=== PATIENT | female | born 1935 | race Caucasian/White ===

== ENCOUNTER → 2017-08-30 12:12 | Outpatient (CLI) | payer MEDICARE, SELFPAY ==
--- NOTE | 2017-08-30 12:17 | XR_ITS ---
EXAM: XR lumbar spine min 4V HISTORY: ITS.REASON: LBP WITHOUT SCIATICA ORDERING PHYSICIAN: Hina Mcbride PATIENT AGE: 82 years FINDINGS: Normal alignment. No fracture or dislocation. No lytic or blastic change. There are minimal hypertrophic changes involving the endplates at L1, L2, and L3. Mild degenerative disc disease L1-L4. IMPRESSION: 1. No acute finding. 2. Mild lumbar spondylosis as described above
== END ==
PROVIDERS: PCP Internal Medicine Adolescent Medicine; Visit Provider Nurse Practitioner Family
DX: M54.5 Low back pain (principal)
CPT/HCPCS: 72110

== ENCOUNTER → 2018-04-08 12:59 | Outpatient (CLI) | payer MEDICARE, SELFPAY ==
[2018-04-08 13:56] LABS: Basophils % 0.4 % (0.1-2.0); Eosinophils % 0.6 % (0.1-12.0); Hematocrit 37.5 % (37.0-47.0); Hemoglobin 12.1 g/dL (12.2-16.2); Lymphocytes % 14.7 % (10-50); Mean Corpuscular HGB Conc 32.1 g/dL (31.8-35.4); Mean Corpuscular Hemoglobin 31.5 pg (27.0-31.2); Mean Corpuscular Volume 98.1 fl (81-99); Mean Platelet Volume 8.1 fl (7.4-10.4); Monocytes # 0.3 K/mm3 (0.1-1.0); Monocytes % 4.5 % (1.7-9.3); Neutrophils # 5.7 K/mm3 (1.8-7.8); Neutrophils % 79.8 % (37.0-80.0); Platelet Count 244 K/mm3 (142-424); Red Blood Count 3.83 M/mm3 (4.20-5.40); Red Cell Distribution Width 12.7 % (11.5-17.5); White Blood Count 7.1 K/mm3 (4.8-10.8)
[2018-04-08 14:16] LABS: INR 1.24 (0.9-1.1); Prothrombin Time 12.7 seconds (9.4-11.8)
[2018-04-08 14:21] LABS: Anion Gap 11.8 mEq/L (5-15); Blood Urea Nitrogen 11 mg/dL (7-18); Calcium 8.3 mg/dL (8.5-10.1); Carbon Dioxide 28 mmol/L (21.0-32.0); Chloride 106 mmol/L (98-107); Creatinine,Serum 1.08 mg/dL (0.55-1.02); Estimated Glomerular Filt Rate 48 ml/min (>60); GFR (African American) 59 ML/MIN (>60); Glucose 129 mg/dL (74-106); Magnesium 1.2 mg/dL (1.4-2.2); Phenytoin (Dilantin) 12.7 ug/mL (10-20); Potassium 3.8 mmoL/L (3.5-5.1); Sodium 142 mmol/L (136-145)
== END ==
PROVIDERS: Visit Provider Nurse Practitioner Family
DX: I48.0 Paroxysmal atrial fibrillation (principal)
CPT/HCPCS: 36415; 80048; 80185; 83735; 85025; 85610

== ENCOUNTER 2018-04-12 13:06 | Outpatient (CLI) | payer MEDICARE, SELFPAY ==
[2018-04-12 14:10] LABS: PHA INR Fingerstick 2.2 (0.9-1.1)
== END 2018-04-12 14:12 | disposition home or self-care (01) ==
LOC: ACC 13:09
PROVIDERS: PCP Internal Medicine Adolescent Medicine; Visit Provider Nurse Practitioner Family
DX: Z51.81 Encounter for therapeutic drug level monitoring (principal); Z79.01 Long term (current) use of anticoagulants; I48.91 Unspecified atrial fibrillation
CPT/HCPCS: 85610; 99211; G0463

== ENCOUNTER 2018-04-19 08:14 | Outpatient (CLI) | payer MEDICARE, SELFPAY | END 2018-04-19 15:27 | disposition home or self-care (01) | LOC: ACC 08:16 | PROVIDERS: PCP Internal Medicine Adolescent Medicine; Visit Provider Internal Medicine Adolescent Medicine | DX: Z79.01 Long term (current) use of anticoagulants (principal); Z51.81 Encounter for therapeutic drug level monitoring; I48.91 Unspecified atrial fibrillation | CPT/HCPCS: 99211; G0463 ==

== ENCOUNTER 2018-04-29 10:02 | Outpatient (CLI) | payer MEDICARE, SELFPAY ==
[2018-04-29 14:48] LABS: PHA INR Fingerstick 1.7 (0.9-1.1)
== END 2018-04-29 15:02 | disposition home or self-care (01) ==
LOC: ACC 10:05
PROVIDERS: PCP Internal Medicine Adolescent Medicine; Visit Provider Internal Medicine Adolescent Medicine
DX: Z51.81 Encounter for therapeutic drug level monitoring (principal); Z79.01 Long term (current) use of anticoagulants; I48.91 Unspecified atrial fibrillation
CPT/HCPCS: 85610; 99211; G0463

== ENCOUNTER 2018-05-13 09:45 | Outpatient (CLI) | payer MEDICARE, SELFPAY ==
[2018-05-13 11:19] LABS: PHA INR Fingerstick 2.9 (0.9-1.1)
== END 2018-05-13 11:51 | disposition home or self-care (01) ==
LOC: ACC 09:47
PROVIDERS: PCP Nurse Practitioner Family; Visit Provider Nurse Practitioner Family
DX: Z51.81 Encounter for therapeutic drug level monitoring (principal); Z79.01 Long term (current) use of anticoagulants; I48.91 Unspecified atrial fibrillation
CPT/HCPCS: 85610; 99211; G0463

== ENCOUNTER 2018-05-24 09:30 | Outpatient (CLI) | payer MEDICARE, SELFPAY ==
[2018-05-24 15:53] LABS: PHA INR Fingerstick 2.3 (0.9-1.1)
== END 2018-05-24 16:10 | disposition home or self-care (01) ==
LOC: ACC 09:31
PROVIDERS: PCP Internal Medicine Adolescent Medicine; Visit Provider Nurse Practitioner Family
DX: Z51.81 Encounter for therapeutic drug level monitoring (principal); Z79.01 Long term (current) use of anticoagulants; I48.91 Unspecified atrial fibrillation
CPT/HCPCS: 85610; 99211; G0463

== ENCOUNTER 2018-06-14 10:22 | Outpatient (CLI) | payer MEDICARE, SELFPAY ==
[2018-06-14 16:02] LABS: PHA INR Fingerstick 2.4 (0.9-1.1)
== END 2018-06-14 16:10 | disposition home or self-care (01) ==
LOC: ACC 10:25
PROVIDERS: PCP Internal Medicine Adolescent Medicine; Visit Provider Nurse Practitioner Family
DX: Z51.81 Encounter for therapeutic drug level monitoring (principal); Z79.01 Long term (current) use of anticoagulants; I48.91 Unspecified atrial fibrillation
CPT/HCPCS: 85610; 99211; G0463

== ENCOUNTER 2018-07-12 10:16 | Outpatient (CLI) | payer MEDICARE, SELFPAY ==
[2018-07-12 13:38] LABS: PHA INR Fingerstick 2.6 (0.9-1.1)
== END 2018-07-12 14:16 | disposition home or self-care (01) ==
LOC: ACC 10:18
PROVIDERS: PCP Internal Medicine Adolescent Medicine; Visit Provider Nurse Practitioner Family
DX: Z51.81 Encounter for therapeutic drug level monitoring (principal); Z79.01 Long term (current) use of anticoagulants; I48.91 Unspecified atrial fibrillation
CPT/HCPCS: 85610; 99211; G0463

== ENCOUNTER 2018-08-06 11:20 | Outpatient (CLI) | payer MEDICARE, SELFPAY ==
[2018-08-06 13:20] LABS: PHA INR Fingerstick 2.1 (0.9-1.1)
== END 2018-08-06 13:41 | disposition home or self-care (01) ==
LOC: ACC 11:21
PROVIDERS: PCP Nurse Practitioner Family; Visit Provider Nurse Practitioner Family
DX: Z51.81 Encounter for therapeutic drug level monitoring (principal); Z79.01 Long term (current) use of anticoagulants; I48.91 Unspecified atrial fibrillation
CPT/HCPCS: 85610; 99211; G0463

== ENCOUNTER 2018-09-20 10:21 | Outpatient (CLI) | payer MEDICARE, SELFPAY ==
[2018-09-20 14:57] LABS: PHA INR Fingerstick 2.4 (0.9-1.1)
== END 2018-09-20 14:59 | disposition home or self-care (01) ==
LOC: ACC 10:22
PROVIDERS: PCP Nurse Practitioner Family; Visit Provider Nurse Practitioner Family
DX: Z51.81 Encounter for therapeutic drug level monitoring (principal); Z79.01 Long term (current) use of anticoagulants; I48.91 Unspecified atrial fibrillation; I10 Essential (primary) hypertension; R56.9 Unspecified convulsions; Z86.73 Personal history of transient ischemic attack (TIA), and cerebral infarction without residual deficits
CPT/HCPCS: 85610; 99211; G0463

== ENCOUNTER 2018-11-01 09:48 | Outpatient (CLI) | payer MEDICARE, SELFPAY ==
[2018-11-01 15:17] LABS: PHA INR Fingerstick 2.8 (0.9-1.1)
== END 2018-11-01 15:24 | disposition home or self-care (01) ==
LOC: ACC 09:49
PROVIDERS: PCP Internal Medicine Adolescent Medicine; Visit Provider Nurse Practitioner Family
DX: Z51.81 Encounter for therapeutic drug level monitoring (principal); Z79.01 Long term (current) use of anticoagulants; I48.91 Unspecified atrial fibrillation
CPT/HCPCS: 85610; 99211; G0463

== ENCOUNTER 2018-12-13 09:46 | Outpatient (CLI) | payer MEDICARE, SELFPAY ==
[2018-12-13 10:30] LABS: PHA INR Fingerstick 2.6 (0.9-1.1)
== END 2018-12-13 10:34 | disposition home or self-care (01) ==
LOC: ACC 09:48
PROVIDERS: PCP Nurse Practitioner Family; Visit Provider Nurse Practitioner Family
DX: Z51.81 Encounter for therapeutic drug level monitoring (principal); Z79.01 Long term (current) use of anticoagulants; I48.91 Unspecified atrial fibrillation
CPT/HCPCS: 85610; 99211; G0463

== ENCOUNTER 2019-01-24 09:29 | Outpatient (CLI) | payer MEDICARE, SELFPAY ==
[2019-01-24 12:22] LABS: PHA INR Fingerstick 2.7 (0.9-1.1)
== END 2019-01-24 12:24 | disposition home or self-care (01) ==
LOC: ACC 09:30
PROVIDERS: PCP Nurse Practitioner Family; Visit Provider Nurse Practitioner Family
DX: Z51.81 Encounter for therapeutic drug level monitoring (principal); Z79.01 Long term (current) use of anticoagulants; I48.91 Unspecified atrial fibrillation
CPT/HCPCS: 85610; 99211; G0463

== ENCOUNTER 2019-03-07 09:38 | Outpatient (CLI) | payer MEDICARE, SELFPAY ==
[2019-03-07 10:22] LABS: PHA INR Fingerstick 2.7 (0.9-1.1)
== END 2019-03-07 10:24 | disposition home or self-care (01) ==
LOC: ACC 09:40
PROVIDERS: PCP Internal Medicine Adolescent Medicine; Visit Provider Nurse Practitioner Family
DX: Z51.81 Encounter for therapeutic drug level monitoring (principal); Z79.01 Long term (current) use of anticoagulants
CPT/HCPCS: 85610; 99211; G0463

== ENCOUNTER 2019-04-18 09:53 | Outpatient (CLI) | payer MEDICARE, SELFPAY | END 2019-04-18 15:03 | disposition home or self-care (01) | LOC: ACC 09:54 | PROVIDERS: PCP Nurse Practitioner Family; Visit Provider Nurse Practitioner Family | DX: Z51.81 Encounter for therapeutic drug level monitoring (principal); Z79.01 Long term (current) use of anticoagulants; I48.91 Unspecified atrial fibrillation | CPT/HCPCS: 85610; 99211; G0463 ==

== ENCOUNTER 2019-05-23 09:39 | Outpatient (CLI) | payer MEDICARE, SELFPAY ==
[2019-05-23 13:34] LABS: PHA INR Fingerstick 2.2 (0.9-1.1)
== END 2019-05-23 13:36 | disposition home or self-care (01) ==
LOC: ACC 09:40
PROVIDERS: PCP Internal Medicine Adolescent Medicine; Visit Provider Internal Medicine Adolescent Medicine
DX: Z51.81 Encounter for therapeutic drug level monitoring (principal); Z79.01 Long term (current) use of anticoagulants; I48.91 Unspecified atrial fibrillation
CPT/HCPCS: 85610; 99211; G0463

== ENCOUNTER 2019-07-04 09:20 | Outpatient (CLI) | payer MEDICARE, SELFPAY ==
[2019-07-04 10:15] LABS: PHA INR Fingerstick 3.1 (0.9-1.1)
== END 2019-07-04 10:16 | disposition home or self-care (01) ==
LOC: ACC 09:22
PROVIDERS: PCP Internal Medicine Adolescent Medicine; Visit Provider Internal Medicine Adolescent Medicine
DX: Z51.81 Encounter for therapeutic drug level monitoring (principal); Z79.01 Long term (current) use of anticoagulants; I48.91 Unspecified atrial fibrillation
CPT/HCPCS: 85610; 99211; G0463

== ENCOUNTER → 2019-07-07 11:15 | Outpatient (CLI) | payer MEDICARE, SELFPAY ==
--- NOTE | 2019-07-07 11:19 | XR_ITS ---
PROCEDURE: XR ANKLE RT MIN 3V CLINICAL INDICATION: RT ANKLE AND JOINT PAIN Medial ankle pain COMPARISON: No exams were available for comparison FINDINGS: No fracture, dislocation, lytic change, or blastic change evident. No significant degenerative change. There is generalized vascular calcification. IMPRESSION: No acute findings. Dictated by: Xavi Webb MD 07/07/2019 11:48 Electronically signed by Xavi Webb MD in [place] 07/07/2019 11:48
== END ==
PROVIDERS: PCP Nurse Practitioner Family; Visit Provider Nurse Practitioner Family
DX: M25.571 Pain in right ankle and joints of right foot (principal); G89.29 Other chronic pain
CPT/HCPCS: 73610

== ENCOUNTER 2019-08-01 09:43 | Outpatient (CLI) | payer MEDICARE, SELFPAY | END 2019-08-01 11:02 | disposition home or self-care (01) | PROVIDERS: PCP Nurse Practitioner Family; Visit Provider Internal Medicine Adolescent Medicine | DX: Z51.81 Encounter for therapeutic drug level monitoring (principal); Z79.01 Long term (current) use of anticoagulants; I48.91 Unspecified atrial fibrillation | CPT/HCPCS: 85610; 99211; G0463 ==

== ENCOUNTER 2019-08-29 10:09 | Outpatient (CLI) | payer MEDICARE, SELFPAY ==
[2019-08-29 11:13] LABS: PHA INR Fingerstick 2.1 (0.9-1.1)
== END 2019-08-29 11:18 | disposition home or self-care (01) ==
LOC: ACC 10:11
PROVIDERS: PCP Internal Medicine Adolescent Medicine; Visit Provider Internal Medicine Adolescent Medicine
DX: Z51.81 Encounter for therapeutic drug level monitoring (principal); Z79.01 Long term (current) use of anticoagulants; I48.91 Unspecified atrial fibrillation
CPT/HCPCS: 85610; 99211; G0463

== ENCOUNTER 2019-10-03 09:20 | Outpatient (CLI) | payer MEDICARE, SELFPAY ==
[2019-10-03 10:26] LABS: PHA INR Fingerstick 2.4 (0.9-1.1)
== END 2019-10-03 10:28 | disposition home or self-care (01) ==
LOC: ACC 09:20
PROVIDERS: PCP Internal Medicine Adolescent Medicine; Visit Provider Internal Medicine Adolescent Medicine
DX: Z51.81 Encounter for therapeutic drug level monitoring (principal); Z79.01 Long term (current) use of anticoagulants; I48.91 Unspecified atrial fibrillation
CPT/HCPCS: 85610; 99211; G0463

== ENCOUNTER 2019-11-14 09:36 | Outpatient (CLI) | payer MEDICARE, SELFPAY ==
[2019-11-14 15:41] LABS: PHA INR Fingerstick 1.4 (0.9-1.1)
== END 2019-11-14 15:54 | disposition home or self-care (01) ==
LOC: ACC 09:37
PROVIDERS: PCP Internal Medicine Adolescent Medicine; Visit Provider Internal Medicine Adolescent Medicine
DX: Z51.81 Encounter for therapeutic drug level monitoring (principal); Z79.01 Long term (current) use of anticoagulants; I48.91 Unspecified atrial fibrillation
CPT/HCPCS: 85610; 99211; G0463

== ENCOUNTER 2019-12-12 09:34 | Outpatient (CLI) | payer MEDICARE, SELFPAY ==
[2019-12-12 13:47] LABS: PHA INR Fingerstick 1.7 (0.9-1.1)
== END 2019-12-12 13:49 | disposition home or self-care (01) ==
LOC: ACC 09:35
PROVIDERS: PCP Internal Medicine Adolescent Medicine; Visit Provider Internal Medicine Adolescent Medicine
DX: Z51.81 Encounter for therapeutic drug level monitoring (principal); Z79.01 Long term (current) use of anticoagulants; I48.91 Unspecified atrial fibrillation
CPT/HCPCS: 85610; 99211; G0463

== ENCOUNTER 2020-01-09 09:28 | Outpatient (CLI) | payer MEDICARE, SELFPAY ==
[2020-01-09 15:10] LABS: PHA INR Fingerstick 2.7 (0.9-1.1)
== END 2020-01-09 15:19 | disposition home or self-care (01) ==
LOC: ACC 09:29
PROVIDERS: PCP Internal Medicine Adolescent Medicine; Visit Provider Internal Medicine Adolescent Medicine
DX: Z51.81 Encounter for therapeutic drug level monitoring (principal); Z79.01 Long term (current) use of anticoagulants; I48.91 Unspecified atrial fibrillation
CPT/HCPCS: 85610; 99211; G0463

== ENCOUNTER 2020-01-23 09:39 | Outpatient (CLI) | payer MEDICARE, SELFPAY ==
[2020-01-23 13:59] LABS: PHA INR Fingerstick 2.9 (0.9-1.1)
== END 2020-01-23 14:06 | disposition home or self-care (01) ==
LOC: ACC 09:40
PROVIDERS: PCP Internal Medicine Adolescent Medicine; Visit Provider Internal Medicine Adolescent Medicine
DX: Z51.81 Encounter for therapeutic drug level monitoring (principal); Z79.01 Long term (current) use of anticoagulants; I48.91 Unspecified atrial fibrillation
CPT/HCPCS: 85610; 99211; G0463

== ENCOUNTER 2020-02-27 09:38 | Outpatient (CLI) | payer MEDICARE, SELFPAY ==
[2020-02-27 14:46] LABS: PHA INR Fingerstick 2.9 (0.9-1.1)
== END 2020-02-27 15:02 | disposition home or self-care (01) ==
LOC: ACC 09:39
PROVIDERS: PCP Internal Medicine Adolescent Medicine; Visit Provider Internal Medicine Adolescent Medicine
DX: Z51.81 Encounter for therapeutic drug level monitoring (principal); Z79.01 Long term (current) use of anticoagulants
CPT/HCPCS: 85610; 99211; G0463

== ENCOUNTER 2020-03-26 09:57 | Outpatient (CLI) | payer MEDICARE, SELFPAY ==
[2020-03-26 14:02] LABS: PHA INR Fingerstick 3.2 (0.9-1.1)
== END 2020-03-26 14:04 | disposition home or self-care (01) ==
LOC: ACC 09:58
PROVIDERS: PCP Internal Medicine Adolescent Medicine; Visit Provider Internal Medicine Adolescent Medicine
DX: Z51.81 Encounter for therapeutic drug level monitoring (principal); Z79.01 Long term (current) use of anticoagulants
CPT/HCPCS: 85610; 99211; G0463

== ENCOUNTER 2020-04-19 09:11 | Outpatient (CLI) | payer MEDICARE, SELFPAY ==
[2020-04-19 14:29] LABS: PHA INR Fingerstick 3.2 (0.9-1.1)
== END 2020-04-19 13:48 | disposition home or self-care (01) ==
LOC: ACC 09:12
PROVIDERS: PCP Internal Medicine Adolescent Medicine; Visit Provider Internal Medicine Adolescent Medicine
DX: Z51.81 Encounter for therapeutic drug level monitoring (principal); Z79.01 Long term (current) use of anticoagulants; I48.91 Unspecified atrial fibrillation
CPT/HCPCS: 85610; 99211; G0463

== ENCOUNTER 2020-05-31 09:40 | Outpatient (CLI) | payer MEDICARE, SELFPAY ==
[2020-05-31 12:23] LABS: PHA INR Fingerstick 2.2 (0.9-1.1)
== END 2020-05-31 14:43 | disposition home or self-care (01) ==
LOC: ACC 09:41
PROVIDERS: PCP Nurse Practitioner Family; Visit Provider Internal Medicine Adolescent Medicine
DX: Z51.81 Encounter for therapeutic drug level monitoring (principal); Z79.01 Long term (current) use of anticoagulants; I48.91 Unspecified atrial fibrillation
CPT/HCPCS: 85610; 99211; G0463

== ENCOUNTER 2020-07-16 10:03 | Outpatient (CLI) | payer MEDICARE, SELFPAY ==
[2020-07-16 11:26] LABS: PHA INR Fingerstick 2.2 (0.9-1.1)
== END 2020-07-16 11:31 | disposition home or self-care (01) ==
LOC: ACC 10:05
PROVIDERS: PCP Internal Medicine Adolescent Medicine; Visit Provider Internal Medicine Adolescent Medicine
DX: Z51.81 Encounter for therapeutic drug level monitoring (principal); Z79.01 Long term (current) use of anticoagulants; I48.91 Unspecified atrial fibrillation
CPT/HCPCS: 85610; 99211; G0463

== ENCOUNTER 2020-08-27 09:50 | Outpatient (CLI) | payer MEDICARE, SELFPAY ==
[2020-08-27 10:24] LABS: PHA INR Fingerstick 1.6 (0.9-1.1)
== END 2020-08-27 10:25 | disposition home or self-care (01) ==
LOC: ACC 09:51
PROVIDERS: PCP Internal Medicine Adolescent Medicine; Visit Provider Internal Medicine Adolescent Medicine
DX: Z51.81 Encounter for therapeutic drug level monitoring (principal); Z79.01 Long term (current) use of anticoagulants
CPT/HCPCS: 85610; 99211; G0463

== ENCOUNTER 2020-09-10 10:24 | Outpatient (CLI) | payer MEDICARE, SELFPAY ==
[2020-09-10 10:57] LABS: PHA INR Fingerstick 1.7 (0.9-1.1)
== END 2020-09-10 10:59 | disposition home or self-care (01) ==
LOC: ACC 10:25
PROVIDERS: PCP Internal Medicine Adolescent Medicine; Visit Provider Internal Medicine Adolescent Medicine
DX: Z51.81 Encounter for therapeutic drug level monitoring (principal); Z79.01 Long term (current) use of anticoagulants; I48.91 Unspecified atrial fibrillation
CPT/HCPCS: 85610; 99211; G0463

== ENCOUNTER 2020-10-08 09:47 | Outpatient (CLI) | payer MEDICARE, SELFPAY ==
[2020-10-08 13:55] LABS: PHA INR Fingerstick 2.5 (0.9-1.1)
== END 2020-10-08 13:56 | disposition home or self-care (01) ==
LOC: ACC 09:49
PROVIDERS: PCP Nurse Practitioner Family; Visit Provider Internal Medicine Adolescent Medicine
DX: Z79.01 Long term (current) use of anticoagulants (principal)
CPT/HCPCS: 85610; 99211; G0463

== ENCOUNTER 2020-11-19 09:24 | Outpatient (CLI) | payer MEDICARE, SELFPAY ==
--- NOTE | 2020-11-19 15:35 | XR_ITS ---
PROCEDURE: XR FOREARM LT 2V Left wrist three views CLINICAL INDICATION: LT FOREARM PAIN Posttraumatic pain COMPARISON: CR XR WRIST LT MIN 3V from 11/19/2020 FINDINGS: There is a nondisplaced transverse fracture involving the distal aspect radius best visualized on the lateral view. The proximal mid aspect of the radius and ulna have an unremarkable appearance. There is an old fracture versus ununited ossification center at the ulnar styloid process with chondrocalcinosis of the triangular fibrocartilage. Mild osteoarthritic changes are present at the 1st metacarpal-carpal joint. IMPRESSION: Nondisplaced transverse distal radial fracture Dictated by: Xavi Webb MD 11/19/2020 15:54 Xavi Webb MD in [place] 11/19/2020 15:54
[2020-11-19 17:59] LABS: PHA INR Fingerstick 1.9 (0.9-1.1)
== END 2020-11-19 18:07 | disposition home or self-care (01) ==
PROVIDERS: PCP Internal Medicine Adolescent Medicine; Visit Provider Internal Medicine Adolescent Medicine
DX: M79.632 Pain in left forearm (principal); Z51.81 Encounter for therapeutic drug level monitoring; Z79.01 Long term (current) use of anticoagulants; I48.91 Unspecified atrial fibrillation
CPT/HCPCS: 73090; 73110; 85610; 99211; G0463

== ENCOUNTER 2020-11-19 16:27 | Outpatient (RCR) | payer MEDICARE, SELFPAY | END 2020-11-19 17:41 | disposition home or self-care (01) | LOC: PT 16:27 | PROVIDERS: Visit Provider Internal Medicine Adolescent Medicine | DX: S52.325A Nondisplaced transverse fracture of shaft of left radius, initial encounter for closed fracture (principal) | CPT/HCPCS: 97760 ==

== ENCOUNTER → 2020-11-26 10:02 | Outpatient (CLI) | payer MEDICARE, SELFPAY ==
--- NOTE | 2020-11-26 10:07 | XR_ITS ---
PROCEDURE: XR WRIST LT MIN 3V CLINICAL INDICATION: left wirst fracture COMPARISON: CR XR WRIST LT MIN 3V from 11/19/2020 FINDINGS: Studies obtained through a cast. There is good alignment the distal radial fracture with minimal dorsal angulation and minimal dorsal displacement of the distal fracture fragment. IMPRESSION: Good alignment status post closed reduction Dictated by: Xavi Webb MD 11/26/2020 11:39 Xavi Webb MD in [place] 11/26/2020 11:39
== END ==
PROVIDERS: PCP Internal Medicine Adolescent Medicine; Visit Provider Orthopaedic Surgery
DX: S62.102A Fracture of unspecified carpal bone, left wrist, initial encounter for closed fracture (principal)
CPT/HCPCS: 73110

== ENCOUNTER 2020-12-17 10:12 | Outpatient (CLI) | payer MEDICARE, SELFPAY ==
[2020-12-17 13:53] LABS: PHA INR Fingerstick 1.9 (0.9-1.1)
== END 2020-12-17 13:57 | disposition home or self-care (01) ==
LOC: ACC 10:12
PROVIDERS: PCP Internal Medicine Adolescent Medicine; Visit Provider Internal Medicine Adolescent Medicine
DX: Z51.81 Encounter for therapeutic drug level monitoring (principal); Z79.01 Long term (current) use of anticoagulants; I48.91 Unspecified atrial fibrillation
CPT/HCPCS: 85610; 99211; G0463

== ENCOUNTER → 2020-12-24 09:32 | Outpatient (CLI) | payer MEDICARE, SELFPAY ==
--- NOTE | 2020-12-24 09:36 | XR_ITS ---
PROCEDURE: XR WRIST LT MIN 3V CLINICAL INDICATION: left wrist fracture Essentially healed distal radial fracture COMPARISON: CR XR WRIST LT MIN 3V from 11/19/2020 CR XR WRIST LT MIN 3V from 11/26/2020 FINDINGS: There is generalized osteopenia. Nondisplaced distal radial fracture is essentially healed with with a transverse linear sclerotic area at the healing fracture site. An old unfused ulnar apophysis or on views ulnar styloid fracture is again seen. IMPRESSION: Essentially healed distal radial fracture Dictated by: Dr. King Greer MD 12/24/2020 09:58 Dr. King Greer MD in [place] 12/24/2020 09:58
== END ==
PROVIDERS: PCP Internal Medicine Adolescent Medicine; Visit Provider Orthopaedic Surgery
DX: S52.502A Unspecified fracture of the lower end of left radius, initial encounter for closed fracture (principal)
CPT/HCPCS: 73110

== ENCOUNTER 2021-01-05 18:12 | Emergency (ER) | payer MEDICARE, SELFPAY ==
[2021-01-05 18:27] VITALS: BP 132/77; PULSE 94; RESP 20; TEMP 36.6; O2SAT 96; BMI 20.7
--- NOTE | 2021-01-05 18:36 | XR_ITS ---
PROCEDURE INFORMATION: Exam: XR Chest Exam date and time: 01/05/2021 6:36 PM Age: 85 years old Clinical indication: Cough; Prior surgery; Surgery date: 6+ months; Surgery type: Loop recorder TECHNIQUE: Imaging protocol: XR of the chest. Views: 2 views. COMPARISON: CR CXR CHEST(2 VIEWS-NOT PORTABLE) 04/20/2016 11:13 AM FINDINGS: Tubes, catheters and devices: Cardiac monitoring device overlies the left lung base. Lungs: No consolidations, or pleural effusions. Pleural spaces: See Lungs finding. Heart/Mediastinum: Unremarkable. No cardiomegaly. Bones/joints: Unremarkable. IMPRESSION: No acute findings.
[2021-01-05 18:43] LABS: Basophils % 0.4 % (0.1-2.0); Eosinophils % 0.1 % (0.1-12.0); Hematocrit 37.1 % (37.0-47.0); Hemoglobin 12.7 g/dL (12.2-16.2); Lymphocytes # 0.8 K/mm3 (0.7-4.5); Lymphocytes % 13.5 % (10-50); Mean Corpuscular HGB Conc 34.2 g/dL (31.8-35.4); Mean Corpuscular Hemoglobin 33.2 pg (27.0-31.2); Mean Corpuscular Volume 96.9 fl (81-99); Mean Platelet Volume 8.5 fl (7.4-10.4); Monocytes # 0.3 K/mm3 (0.1-1.0); Monocytes % 5.3 % (1.7-9.3); Neutrophils # 4.6 K/mm3 (1.8-7.8); Neutrophils % 80.8 % (37.0-80.0); Platelet Count 223 K/mm3 (142-424); Red Blood Count 3.83 M/mm3 (4.20-5.40); Red Cell Distribution Width 12.6 % (11.5-17.5); White Blood Count 5.7 K/mm3 (4.8-10.8)
[2021-01-05 18:45] LABS: Chloride 98 mmol/L (98-107); Potassium 3.2 mmoL/L (3.5-5.1); Sodium 136 mmol/L (136-145)
--- NOTE | 2021-01-05 18:45 | HMH.EDUTC ---
[facility] Disposition Clinical Impression: Dehydration, COVID-19 Sinusitis Qualifiers: Sinusitis location: unspecified location Chronicity: unspecified Qualified Code(s): J32.9 - Chronic sinusitis, unspecified Disposition: Home, Self-Care Condition on Discharge: Good Instructions: Dehydration, DI for Hypokalemia, DI for COVID-19 (Suspected or Confirmed ), Preventing the Spread of Coronavirus Discharge Instructions Additional Instructions: *Monitor Temp, Over the counter Motrin or Tylenol as directed/as needed Tylenol every 4 hours and Motrin every 6 hours (as long as your family doctor has told you that you can take it) for fever or pain. and straight to ER if unable to lower temp less than 101.0 after medication given *Warm salt water gargles may help to soothe the throat *Throat Lozenges *Warm fluids like tea with honey may help to soothe the throat *Sleep elevated *Humidifier/Vaporizer You was given a handout with instructions for Self Quarantine and Self isolation for while you wait on test results and what to do if they are positive If you are positive the Health Dept will be contacting you also Make sure to take your Vitamins Vit. C Vit D and Zinc if you can take them Follow up IMMEDIATELY for new or worsening symptoms or no Noticeable improvement over the next 48-72 hours. 911 for difficulty breathing or swallowing Contact your Family Doctor if no improvement and follow up as needed Go straight to the ER if you have an trouble breathing, chest pain or worsening of symptoms Make sure to eat some potatoes, bananas etc to help get your potassium raised Return if needed Make sure to contact the [facility] to let them know you are taking Azithromycin and Medrol dose pack so they can adjust your medication Make sure to drink plenty of fluids like water and or gatoraid to help prevent dehydration however gatoraid does contain alot of sodium so watch it if you follow a low sodium diet Prescriptions: methylPREDNISolone [Medrol 4mg tab] 4 mg PO DIRECTED #21 tab Transmission Status: Pending to Frequency # Azithromycin [Z-Lalit 250mg Tab] 250 mg PO DIRECTED #6 tab Transmission Status: Pending to Frequency # Referrals: Hina Mcbride APRN [Primary Care Provider] - As needed Time of Disposition: 20:53 Medical Decision Making - Emerson Inquiry Pt receiving controlled substance: No Emerson was queried for this patient: No Vital Signs: 01/05/21 18:27 Temperature 97.9 F Temperature Source Temporal Artery Scan Pulse Rate [Left] 94 H Respiratory Rate 20 Blood Pressure [Right Arm] 132/77 Blood Pressure Mean [Right Arm] 95 02 Sat by Pulse Oximetry 96 - Lab Data Lab Results 01/05/21 18:20: WBC 5.7, RBC 3.83 L, Hgb 12.7, Hct 37.1, MCV 96.9, MCH 33.2 H, MCHC 34.2, RDW 12.6, Plt Count 223, MPV 8.5, Neut % (Auto) 80.8 H, Lymph % (Auto) 13.5, [place] % (Auto) 5.3, Eos % (Auto) 0.1, Baso % (Auto) 0.4, Neut # (Auto) 4.6, Lymph # (Auto) 0.8, [place] # (Auto) 0.3, Eos # (Auto) 0.0, Baso # (Auto) 0.0 01/05/21 18:20: Sodium 136, Potassium 3.2 L, Chloride 98, Carbon Dioxide 25, Anion Gap 16.2 H, BUN 30 H, Creatinine 1.40 H, Estimated Creat Clear 26, Estimated GFR 36 L, Est GFR ( Amer) 43 L, Glucose 124 H, Calcium 7.9 L, Total Bilirubin 0.3, AST 26, ALT 19, Alkaline Phosphatase 202 H, Total Protein 7.2, Albumin 3.8, Globulin 3.4 H, Albumin/Globulin Ratio 1.1 01/05/21 18:30: SARS-CoV-2 (PCR) Detected A, Influenza A Untype (PCR) Not detected, Influenza Type B (PCR) Not detected Result diagrams: 01/05/21 18:20 01/05/21 18:20 Orders (Tests/Meds): ED MEDICATIONS Generic Name Dose Route Start Last Admin Trade Name Freq PRN Reason Stop Dose Admin Lactated Ringer's 1,000 mls @ 999 mls/hr 01/05/21 20:45 01/05/21 20:39 Lactated Ringer's 1000 Ml Bag IV 01/05/21 21:45 999 mls/hr .[id number] JOSHUA Administration Discontinued Medications Generic Name Dose Route Start Last Admin Tr
[2021-01-05 18:48] LABS: Alanine Aminotransferase 19 U/L (12-78); Albumin Level 3.8 g/dl (3.5-5.0); Albumin/Globulin Ratio 1.1 (1.1-1.8); Alkaline Phosphatase 202 U/L (38-126); Anion Gap 16.2 mEq/L (5-15); Aspartate Amino Transferase 26 U/L (14-36); Bilirubin,Total 0.3 mg/dl (0.2-1.3); Blood Urea Nitrogen 30 mg/dl (7-17); Calcium 7.9 mg/dl (8.4-10.2); Carbon Dioxide 25 mmol/L (22.0-30.0); Creatinine Clearance Estimated 26 mL/min (50-200); Estimated Glomerular Filt Rate 36 ml/min (>60); GFR (African American) 43 ML/MIN (>60); Globulin 3.4 g/dL (1.3-3.2); Glucose 124 mg/dl (74-100); Total Protein,Serum 7.2 g/dl (6.3-8.2)
[2021-01-05 19:22] LABS: Influenza A, PCR Not Detected (NotDetected); Influenza B, PCR Not Detected (NotDetected)
[2021-01-05 20:26] LABS: Coronavirus 19, PCR Detected (NotDetected)
[2021-01-05 20:50] VITALS: BP 125/73; PULSE 86; RESP 16; TEMP 36.7
== END 2021-01-05 21:10 | disposition home or self-care (01) ==
PROVIDERS: Emergency Provider Nurse Practitioner; PCP Nurse Practitioner Family
DX: E86.0 Dehydration (principal); Z20.822 Contact with and (suspected) exposure to COVID-19; Z79.899 Other long term (current) drug therapy; Z79.01 Long term (current) use of anticoagulants; Z88.2 Allergy status to sulfonamides
CPT/HCPCS: 71046; 80053; 85025; 96365; 99203; C9803; G0463; U0003; U0005

== ENCOUNTER 2021-01-12 07:47 | Outpatient (CLI) | payer MEDICARE, SELFPAY ==
[2021-01-12] VITALS (8 sets, daily range): BP systolic 133–151; BP diastolic 63–78; PULSE 72–85; RESP 16–18; TEMP 36.6–36.7; O2SAT 94–96
[2021-01-12 09:38] LABS: Prothrombin Time > 90.0 seconds (10.1-12.5)
[2021-01-12 09:42] LABS: INR > 8.00 (0.9-1.1)
--- NOTE | 2021-01-12 13:55 | PC.NURSE ---
per Jeremy in pharmacy, pt instructed to not take her coumadin again until she hears from him. Pt verbalized understanding.
== END 2021-01-12 10:45 | disposition home or self-care (01) ==
LOC: INF 07:50
PROVIDERS: PCP Internal Medicine Adolescent Medicine; Visit Provider Internal Medicine Adolescent Medicine
DX: U07.1 COVID-19 (principal); Z51.81 Encounter for therapeutic drug level monitoring; Z79.01 Long term (current) use of anticoagulants; I48.91 Unspecified atrial fibrillation
CPT/HCPCS: 85610; 96365

== ENCOUNTER 2021-01-25 10:35 | Outpatient (CLI) | payer MEDICARE, SELFPAY ==
[2021-01-25 13:29] LABS: PHA INR Fingerstick 2.2 (0.9-1.1)
== END 2021-01-25 13:31 | disposition home or self-care (01) ==
LOC: ACC 10:36
PROVIDERS: PCP Internal Medicine Adolescent Medicine; Visit Provider Internal Medicine Adolescent Medicine
DX: Z51.81 Encounter for therapeutic drug level monitoring (principal); Z79.01 Long term (current) use of anticoagulants; I48.91 Unspecified atrial fibrillation
CPT/HCPCS: 85610; 99211; G0463

== ENCOUNTER 2021-02-07 09:30 | Outpatient (CLI) | payer MEDICARE, SELFPAY ==
[2021-02-07 10:41] LABS: PHA INR Fingerstick 2.4 (0.9-1.1)
== END 2021-02-07 10:42 | disposition home or self-care (01) ==
LOC: ACC 09:32
PROVIDERS: PCP Internal Medicine Adolescent Medicine; Visit Provider Internal Medicine Adolescent Medicine
DX: Z51.81 Encounter for therapeutic drug level monitoring (principal); Z79.01 Long term (current) use of anticoagulants
CPT/HCPCS: 85610; 99211; G0463

== ENCOUNTER 2021-03-07 08:34 | Outpatient (CLI) | payer MEDICARE, SELFPAY ==
[2021-03-07 13:52] LABS: PHA INR Fingerstick 2.3 (0.9-1.1)
== END 2021-03-07 13:58 | disposition home or self-care (01) ==
LOC: ACC 08:35
PROVIDERS: PCP Internal Medicine Adolescent Medicine; Visit Provider Internal Medicine Adolescent Medicine
DX: Z51.81 Encounter for therapeutic drug level monitoring (principal); Z79.01 Long term (current) use of anticoagulants; I48.91 Unspecified atrial fibrillation
CPT/HCPCS: 85610; 99211; G0463

== ENCOUNTER 2021-04-18 08:54 | Outpatient (CLI) | payer MEDICARE, SELFPAY ==
[2021-04-18 16:30] LABS: PHA INR Fingerstick 1.7 (0.9-1.1)
== END 2021-04-18 16:32 | disposition home or self-care (01) ==
LOC: ACC 08:55
PROVIDERS: PCP Internal Medicine Adolescent Medicine; Visit Provider Internal Medicine Adolescent Medicine
DX: Z51.81 Encounter for therapeutic drug level monitoring (principal); Z79.01 Long term (current) use of anticoagulants; I48.91 Unspecified atrial fibrillation
CPT/HCPCS: 85610; 99211; G0463

== ENCOUNTER → 2021-05-13 09:47 | Outpatient (CLI) | payer MEDICARE, SELFPAY ==
[2021-05-13 10:50] LABS: PHA INR Fingerstick 1.5 (0.9-1.1)
== END ==
PROVIDERS: PCP Internal Medicine Adolescent Medicine; Visit Provider Internal Medicine Adolescent Medicine
DX: Z51.81 Encounter for therapeutic drug level monitoring (principal); Z79.01 Long term (current) use of anticoagulants
CPT/HCPCS: 85610; 99211; G0463

== ENCOUNTER 2021-06-03 09:56 | Outpatient (CLI) | payer MEDICARE, SELFPAY ==
[2021-06-03 16:29] LABS: PHA INR Fingerstick 1.7 (0.9-1.1)
== END 2021-06-03 16:30 | disposition home or self-care (01) ==
LOC: ACC 09:57
PROVIDERS: PCP Internal Medicine Adolescent Medicine; Visit Provider Internal Medicine Adolescent Medicine
DX: Z51.81 Encounter for therapeutic drug level monitoring (principal); Z79.01 Long term (current) use of anticoagulants; I48.91 Unspecified atrial fibrillation
CPT/HCPCS: 85610; 99211; G0463

== ENCOUNTER 2021-06-17 09:29 | Outpatient (CLI) | payer MEDICARE, SELFPAY ==
[2021-06-17 11:13] LABS: Basophils % 0.6 % (0.1-2.0); Eosinophils # 0.2 K/mm3 (0.0-0.4); Eosinophils % 3.3 % (0.1-12.0); Hematocrit 35.1 % (37.0-47.0); Hemoglobin 11.8 g/dL (12.2-16.2); Lymphocytes # 1.1 K/mm3 (0.7-4.5); Lymphocytes % 22.4 % (10-50); Mean Corpuscular HGB Conc 33.5 g/dL (31.8-35.4); Mean Corpuscular Hemoglobin 32.2 pg (27.0-31.2); Mean Corpuscular Volume 96.1 fl (81-99); Mean Platelet Volume 8.6 fl (7.4-10.4); Monocytes # 0.3 K/mm3 (0.1-1.0); Monocytes % 6.1 % (1.7-9.3); Neutrophils # 3.5 K/mm3 (1.8-7.8); Neutrophils % 67.6 % (37.0-80.0); Platelet Count 260 K/mm3 (142-424); Red Blood Count 3.66 M/mm3 (4.20-5.40); Red Cell Distribution Width 13.1 % (11.5-17.5); White Blood Count 5.1 K/mm3 (4.8-10.8)
[2021-06-17 11:14] LABS: Alanine Aminotransferase 15 U/L (12-78); Albumin Level 4.1 g/dl (3.5-5.0); Albumin/Globulin Ratio 1.6 (1.1-1.8); Alkaline Phosphatase 197 U/L (38-126); Aspartate Amino Transferase 17 U/L (14-36); Bilirubin,Total 0.4 mg/dl (0.2-1.3); Blood Urea Nitrogen 19 mg/dl (7-17); Calcium 8.5 mg/dl (8.4-10.2); Carbon Dioxide 30 mmol/L (22.0-30.0); Chloride 104 mmol/L (98-107); Estimated Glomerular Filt Rate 53 ml/min (>60); GFR (African American) 64 ML/MIN (>60); Globulin 2.5 g/dL (1.3-3.2); Glucose 117 mg/dl (74-100); Magnesium 1.3 mg/dl (1.6-2.3); Sodium 139 mmol/L (136-145); Total Protein,Serum 6.6 g/dl (6.3-8.2)
[2021-06-17 12:03] LABS: Vitamin B12 492 pg/mL (239-931)
[2021-06-17 12:55] LABS: PHA INR Fingerstick 1.6 (0.9-1.1)
== END 2021-06-17 12:58 | disposition home or self-care (01) ==
LOC: ACC 09:30
PROVIDERS: Nurse Practitioner Family; PCP Internal Medicine Adolescent Medicine; Visit Provider Internal Medicine Adolescent Medicine
DX: E83.42 Hypomagnesemia (principal); E53.8 Deficiency of other specified B group vitamins; Z51.81 Encounter for therapeutic drug level monitoring; Z79.01 Long term (current) use of anticoagulants
CPT/HCPCS: 36415; 80053; 82607; 83735; 85025; 85610; 99211; G0463

== ENCOUNTER 2021-07-15 09:51 | Outpatient (CLI) | payer MEDICARE, SELFPAY ==
[2021-07-15 15:12] LABS: PHA INR Fingerstick 2.1 (0.9-1.1)
== END 2021-07-15 15:14 | disposition home or self-care (01) ==
LOC: ACC 09:52
PROVIDERS: PCP Internal Medicine Adolescent Medicine; Visit Provider Internal Medicine Adolescent Medicine
DX: Z51.81 Encounter for therapeutic drug level monitoring (principal); Z79.01 Long term (current) use of anticoagulants; I48.91 Unspecified atrial fibrillation
CPT/HCPCS: 85610; 99211; G0463

== ENCOUNTER 2021-08-26 09:59 | Outpatient (CLI) | payer MEDICARE, SELFPAY ==
[2021-08-26 10:19] LABS: PHA INR Fingerstick 2.3 (0.9-1.1)
== END 2021-08-26 10:21 | disposition home or self-care (01) ==
PROVIDERS: PCP Nurse Practitioner Family; Visit Provider Internal Medicine Adolescent Medicine
DX: Z51.81 Encounter for therapeutic drug level monitoring (principal); Z79.01 Long term (current) use of anticoagulants
CPT/HCPCS: 85610; 99211; G0463

== ENCOUNTER 2021-10-06 10:42 | Outpatient (CLI) | payer MEDICARE, SELFPAY ==
[2021-10-06 13:13] LABS: PHA INR Fingerstick 2.1 (0.9-1.1)
== END 2021-10-06 13:15 | disposition home or self-care (01) ==
LOC: ACC 10:43
PROVIDERS: PCP Internal Medicine Adolescent Medicine; Visit Provider Internal Medicine Adolescent Medicine
DX: Z51.81 Encounter for therapeutic drug level monitoring (principal); Z79.01 Long term (current) use of anticoagulants; I48.0 Paroxysmal atrial fibrillation
CPT/HCPCS: 85610; 99211; G0463

== ENCOUNTER 2021-11-17 09:06 | Outpatient (CLI) | payer MEDICARE, SELFPAY ==
[2021-11-17 15:55] LABS: PHA INR Fingerstick 3.1 (0.9-1.1)
== END 2021-11-17 16:04 | disposition home or self-care (01) ==
LOC: ACC 09:07
PROVIDERS: PCP Internal Medicine Adolescent Medicine; Visit Provider Internal Medicine Adolescent Medicine
DX: Z51.81 Encounter for therapeutic drug level monitoring (principal); Z79.01 Long term (current) use of anticoagulants; I48.91 Unspecified atrial fibrillation
CPT/HCPCS: 85610; 99211; G0463

== ENCOUNTER 2021-12-16 10:30 | Outpatient (CLI) | payer MEDICARE, SELFPAY ==
[2021-12-16 15:18] LABS: PHA INR Fingerstick 2.2 (0.9-1.1)
== END 2021-12-16 15:26 ==
LOC: ACC 10:31
PROVIDERS: PCP Internal Medicine Adolescent Medicine; Visit Provider Internal Medicine Adolescent Medicine
DX: Z79.01 Long term (current) use of anticoagulants (principal); Z51.81 Encounter for therapeutic drug level monitoring; I48.91 Unspecified atrial fibrillation
CPT/HCPCS: 85610; 99211; G0463

== ENCOUNTER 2022-01-26 10:20 | Outpatient (CLI) | payer MEDICARE, SELFPAY ==
[2022-01-26 14:33] LABS: PHA INR Fingerstick 2.3 (0.9-1.1)
== END 2022-01-26 14:35 ==
PROVIDERS: PCP Internal Medicine Adolescent Medicine; Visit Provider Internal Medicine Adolescent Medicine
DX: Z51.81 Encounter for therapeutic drug level monitoring (principal); Z79.01 Long term (current) use of anticoagulants; I48.91 Unspecified atrial fibrillation
CPT/HCPCS: 85610; 99211; G0463

== ENCOUNTER 2022-03-10 10:19 | Outpatient (CLI) | payer MEDICARE, SELFPAY ==
[2022-03-10 14:08] LABS: PHA INR Fingerstick 2.5 (0.9-1.1)
== END 2022-03-10 14:58 ==
LOC: ACC 10:20
PROVIDERS: PCP Internal Medicine Adolescent Medicine; Visit Provider Internal Medicine Adolescent Medicine
DX: Z51.81 Encounter for therapeutic drug level monitoring (principal); Z79.01 Long term (current) use of anticoagulants; I48.91 Unspecified atrial fibrillation
CPT/HCPCS: 85610; 99211; G0463

== ENCOUNTER 2022-04-21 10:29 | Outpatient (CLI) | payer MEDICARE, SELFPAY ==
[2022-04-21 16:12] LABS: PHA INR Fingerstick 3.8 (0.9-1.1)
== END 2022-04-21 16:29 ==
LOC: ACC 10:30
PROVIDERS: PCP Internal Medicine Adolescent Medicine; Visit Provider Internal Medicine Adolescent Medicine
DX: Z51.81 Encounter for therapeutic drug level monitoring (principal); Z79.01 Long term (current) use of anticoagulants; I48.91 Unspecified atrial fibrillation
CPT/HCPCS: 85610; 99211; G0463

== ENCOUNTER 2022-05-05 10:28 | Outpatient (CLI) | payer MEDICARE, SELFPAY ==
[2022-05-05 14:16] LABS: PHA INR Fingerstick 2.1 (0.9-1.1)
== END 2022-05-05 14:28 ==
LOC: ACC 10:29
PROVIDERS: PCP Internal Medicine Adolescent Medicine; Visit Provider Internal Medicine Adolescent Medicine
DX: Z51.81 Encounter for therapeutic drug level monitoring (principal); Z79.01 Long term (current) use of anticoagulants; I48.91 Unspecified atrial fibrillation
CPT/HCPCS: 85610; 99211; G0463

== ENCOUNTER 2022-06-06 10:48 | Outpatient (CLI) | payer MEDICARE, SELFPAY ==
[2022-06-06 14:01] LABS: PHA INR Fingerstick 2.4 (0.9-1.1)
== END 2022-06-06 14:04 ==
LOC: ACC 10:49
PROVIDERS: PCP Internal Medicine Adolescent Medicine; Visit Provider Internal Medicine Adolescent Medicine
DX: Z51.81 Encounter for therapeutic drug level monitoring (principal); Z79.01 Long term (current) use of anticoagulants; I48.91 Unspecified atrial fibrillation
CPT/HCPCS: 85610; 99211; G0463

== ENCOUNTER 2022-07-07 06:06 | Emergency (ER) | payer MEDICARE, SELFPAY ==
[2022-07-07 06:08] VITALS: BP 180/81; PULSE 71; RESP 16; TEMP 36.6; O2SAT 99
[2022-07-07 06:16] VITALS: BP 180/81; PULSE 72; O2SAT 97
--- NOTE | 2022-07-07 06:21 | CT_ITS ---
FINAL REPORT TECHNIQUE: Postcontrast axial images through the abdomen and pelvis were performed. This study was performed with techniques to keep radiation doses as low as reasonably achievable, (ALARA). Individualized dose reduction techniques using automated exposure control or adjustment of mA and/or kV according to the patient's size were employed. CLINICAL HISTORY: RLQ pain FINDINGS: Abdomen: There are 7 mm nodules in the right middle lobe and lateral right lower lobe. There is mild atelectasis. Small left pleural effusion is identified. The liver is normal in size and attenuation. The spleen is unremarkable. The adrenals are normal. The pancreas is unremarkable. There is bilateral renal cortical thinning. The aorta is normal in caliber. No free fluid or adenopathy is identified. No findings for mechanical bowel obstruction are identified. Pelvis: The appendix is not identified. The patient is status post hysterectomy. There is a moderate amount of stool throughout the colon. Scattered diverticula is identified. The urinary bladder is unremarkable. No free fluid, free air, abscess or adenopathy is identified. IMPRESSION: Nodules as detailed above. Recommend follow-up CT in 6 months. Moderate stool burden. Diverticulosis without evidence of diverticulitis. Reviewed, Interpreted and Dictated by Trev Serna III, MD Transcribed by Diana Magallon Authenticated and [facility]
[2022-07-07 06:31] LABS: Microscopic, Urine URINE MICROSCOPIC (MICROSCOPIC)
[2022-07-07 06:32] LABS: Appearance,Urine SL CLOUDY (Clear); Bilirubin,Urine Negative (Negative); Blood, Urine TRACE-I (Negative); Color,Urine YELLOW (Yellow); Glucose,Urine (UA) Negative (Negative); Ketones,Urine Negative (Negative); Leukocyte Esterase,Urine 2+ (Negative); Nitrate,Urine Negative (Negative); Protein,Urine Negative (Negative); Urobilinogen,Urine 0.2 EU/dl (0.2)
[2022-07-07 06:34] LABS: Basophils % 0.7 % (0.1-2.0); Eosinophils # 0.2 K/mm3 (0.0-0.4); Eosinophils % 3.1 % (0.1-12.0); Hematocrit 38.2 % (37.0-47.0); Hemoglobin 12.5 g/dL (12.2-16.2); Lymphocytes # 1.7 K/mm3 (0.7-4.5); Lymphocytes % 24.9 % (10-50); Mean Corpuscular HGB Conc 32.7 g/dL (31.8-35.4); Mean Corpuscular Hemoglobin 32.1 pg (27.0-31.2); Mean Corpuscular Volume 98.1 fl (81-99); Mean Platelet Volume 8.4 fl (7.4-10.4); Monocytes # 0.4 K/mm3 (0.1-1.0); Monocytes % 6.3 % (1.7-9.3); Neutrophils # 4.3 K/mm3 (1.8-7.8); Neutrophils % 65.1 % (37.0-80.0); Platelet Count 345 K/mm3 (142-424); Red Blood Count 3.89 M/mm3 (4.20-5.40); Red Cell Distribution Width 13.3 % (11.5-17.5); White Blood Count 6.6 K/mm3 (4.8-10.8)
[2022-07-07 06:41] LABS: Alanine Aminotransferase 20 U/L (12-78); Albumin Level 4.2 g/dl (3.5-5.0); Albumin/Globulin Ratio 1.5 (1.1-1.8); Alkaline Phosphatase 200 U/L (38-126); Amylase 72 U/L (30-110); Anion Gap 9.4 mEq/L (5-15); Aspartate Amino Transferase 20 U/L (14-36); Bilirubin,Total 0.3 mg/dl (0.2-1.3); Blood Urea Nitrogen 21 mg/dl (7-17); Calcium 8.5 mg/dl (8.4-10.2); Carbon Dioxide 30 mmol/L (22.0-30.0); Chloride 101 mmol/L (98-107); Creatinine Clearance Estimated 28 mL/min (50-200); Estimated Glomerular Filt Rate 42 ml/min (>60); GFR (African American) 51 ML/MIN (>60); Globulin 2.8 g/dL (1.3-3.2); Glucose 159 mg/dl (74-100); Lipase 222 U/L (23-300); Potassium 3.4 mmoL/L (3.5-5.1); Sodium 137 mmol/L (136-145)
[2022-07-07 06:42] LABS: Lactic Acid 1.2 mmol/L (0.7-2.1)
[2022-07-07 06:44] LABS: INR 2.68 (0.9-1.1); Prothrombin Time 27.4 seconds (10.1-12.5)
[2022-07-07 06:45] LABS: Bacteria,Urine Trace /lpf; RBC,Urine Occasional #/hpf (0-3)
[2022-07-07 06:46] LABS: C-Reactive Protein 5.7 mg/L (0-4)
--- NOTE | 2022-07-07 06:56 | HMH.EDABDPAI ---
Discharge Plan Disposition Patient Disposition: Home, Self-Care Prescriptions Prescriptions: New levofloxacin 500 mg tablet 500 mg PO DAILY Qty: 7 0RF No Action lisinopril 20 MG tablet 20 mg PO DAILY Label Comments: take 1 tablet by mouth once daily phenytoin sodium extended 100 MG capsule 100 mg PO DAILY warfarin 5 MG tablet 2.5 mg PO DAILY hydrochlorothiazide 25 MG tablet 25 mg PO DAILY Label Comments: take 1 tablet by mouth once daily fluticasone propionate 16 GM spray,suspension 1 spray IH BID metoprolol succinate 50 MG tablet extended release 24 hr 50 mg PO DAILY phenytoin sodium extended 100 MG capsule 200 mg PO HS Referrals Follow up/Referrals: Gurwinder Ramirez MD [Primary Care Provider] - See instructions Clinical Impressions Clinical Impression: Abdominal pain, Acute UTI (urinary tract infection) Instructions Patient Instructions: DI for Urinary Tract Infection (UTI), DI for Acute Abdominal Pain Discharge ED Provider: Juvencio (ED),Sheldon Jacobsen Abdominal Pain HPI General Chief Complaint: Abdominal Pain Stated Complaint: Pain in right side Time Seen by Provider: 07/07/22 06:35 Mode of Arrival: Ambulatory Source of Information: Patient and Medical Record Limitations: No Limitations Description of Symptoms (Recalled from ER Triage Doc. by RN): pt c/o RLQ pain that started yesterday. pt states that it has been a couple days since last bm History of Present Illness HPI narrative: ongoing rt sided abd pain over the last few days complaint: abdominal pain Onset (ago): day(s) Consistency: intermittent Location: RLQ Severity: moderate Quality: dull Associated symptoms: denies other symptoms Related Data Home Medications Medication Instructions Recorded Confirmed fluticasone propionate 50 1 spray IH BID allergies 04/25/18 02/07/21 mcg/actuation nasal spray,suspension hydrochlorothiazide 25 mg tablet 25 mg PO DAILY daily 04/25/18 02/07/21 lisinopril 20 mg tablet 20 mg PO DAILY htn 04/25/18 02/07/21 phenytoin sodium extended 100 mg 100 mg PO DAILY seizures 04/25/18 02/07/21 capsule warfarin 5 mg tablet 2.5 mg PO DAILY afib 04/25/18 02/07/21 metoprolol succinate 50 mg 50 mg PO DAILY BLOOD PRESSURE 02/07/21 02/07/21 tablet,extended release 24 hr phenytoin sodium extended 100 mg 200 mg PO HS SEIZURES 02/07/21 02/07/21 capsule Previous Rx's Medication Instructions Recorded levofloxacin 500 mg tablet 500 mg PO DAILY #7 tabs 07/07/22 Allergies Allergy/AdvReac Type Severity Reaction Status Date / Time Sulfa (Sulfonamide Allergy Mild Verified 01/05/21 18:36 Antibiotics) [SULFA (SULFONAMIDE ANTIBIOTICS)] [facility] Disclaimer: The information contained in this section may have been updated after the patient was seen, as this information can be updated by other users. Social History Smoking Status: Never smoker alcohol intake: never current occupational status: retired Travel in the last 8 weeks: None caffeine: No ROS Obtained: Yes All systems reviewed & no additional complaints except as documented Physical Exam General General appearance: alert Head Head exam: normocephalic Eye Eye exam: Present PERRL and EOMI ENT ENT exam: Present mucous membranes moist Neck Neck exam: Present trachea midline Respiratory Respiratory exam: Present normal lung sounds bilaterally; Absent respiratory distress Cardiovascular Cardiovascular exam: Present regular rate and systolic murmur Abdominal Exam Abdominal exam: Present soft, tenderness and tenderness at McBurney's Point; Absent guarding or rebound Abdominal tenderness: Present RLQ and moderate Extremities Exam Extremities exam: Present full ROM Back Exam Back exam: Absent CVA tenderness (R) Neurological Exam Neurological exam: Present alert, oriented X3 and CN II-XII intact; Absent motor sensory deficit Psychiatric Psychiatric ex
--- NOTE | 2022-07-07 06:57 | PC.NURSE ---
pt going to scan
[2022-07-07 07:00] LABS: Procalcitonin 0.071 ng/mL (0.0-2.0)
--- NOTE | 2022-07-07 07:03 | PC.NURSE ---
pt back in room
[2022-07-07 07:04] LABS: Erythrocyte Sedimentation Rate 19 mm/hr (0-30)
[2022-07-07 07:06] VITALS: BP 153/65; PULSE 67; O2SAT 99
--- NOTE | 2022-07-07 07:08 | PC.NURSE ---
Assumed pt care. Pt returned to CT. Call light within reach and placed on monitor. No complaints at this time.
[2022-07-07 07:30] VITALS: BP 140/64; PULSE 68; O2SAT 100
--- NOTE | 2022-07-07 07:57 | PC.NURSE ---
Phoned radiology for request of preliminary read of CT.
[2022-07-07 08:00] VITALS: BP 143/57; PULSE 64; O2SAT 100
[2022-07-07 08:34] VITALS: BP 143/57; PULSE 64; RESP 16; TEMP 36.6; O2SAT 100
== END 2022-07-07 09:06 | disposition home or self-care (01) ==
PROVIDERS: Emergency Provider Emergency Medicine; PCP Internal Medicine Adolescent Medicine
DX: R10.31 Right lower quadrant pain (principal); N39.0 Urinary tract infection, site not specified
CPT/HCPCS: 74177; 80053; 81001; 82150; 83605; 83690; 84145; 85025; 85610; 85651; 86140; 87086; 96360; 96365; 96374; 96375; 99285; J0696; Q9967

== ENCOUNTER 2022-07-10 10:30 | Outpatient (CLI) | payer MEDICARE, SELFPAY ==
[2022-07-10 11:44] LABS: PHA INR Fingerstick 2.9 (0.9-1.1)
== END 2022-07-10 11:51 ==
LOC: ACC 10:32
PROVIDERS: PCP Internal Medicine Adolescent Medicine; Visit Provider Internal Medicine Adolescent Medicine
DX: Z51.81 Encounter for therapeutic drug level monitoring (principal); Z79.01 Long term (current) use of anticoagulants; I48.91 Unspecified atrial fibrillation
CPT/HCPCS: 85610; 99211; G0463

== ENCOUNTER 2022-07-28 10:27 | Outpatient (CLI) | payer MEDICARE, SELFPAY ==
[2022-07-28 15:58] LABS: PHA INR Fingerstick 1.9 (0.9-1.1)
== END 2022-07-28 15:59 ==
LOC: ACC 10:28
PROVIDERS: PCP Internal Medicine Adolescent Medicine; Visit Provider Internal Medicine Adolescent Medicine
DX: Z51.81 Encounter for therapeutic drug level monitoring (principal); Z79.01 Long term (current) use of anticoagulants; I48.91 Unspecified atrial fibrillation
CPT/HCPCS: 85610; 99211; G0463

== ENCOUNTER 2022-09-08 10:28 | Outpatient (CLI) | payer MEDICARE, SELFPAY ==
[2022-09-08 13:41] LABS: PHA INR Fingerstick 2.7 (0.9-1.1)
== END 2022-09-08 13:47 ==
LOC: ACC 10:28
PROVIDERS: PCP Internal Medicine Adolescent Medicine; Visit Provider Internal Medicine Adolescent Medicine
DX: Z51.81 Encounter for therapeutic drug level monitoring (principal); Z79.01 Long term (current) use of anticoagulants; I48.91 Unspecified atrial fibrillation
CPT/HCPCS: 85610; 99211; G0463

== ENCOUNTER 2022-10-20 10:32 | Outpatient (CLI) | payer MEDICARE, SELFPAY ==
[2022-10-20 12:29] LABS: PHA INR Fingerstick 3.2 (0.9-1.1)
== END 2022-10-20 13:26 ==
LOC: ACC 10:33
PROVIDERS: PCP Internal Medicine Adolescent Medicine; Visit Provider Internal Medicine Adolescent Medicine
DX: Z79.01 Long term (current) use of anticoagulants (principal); Z51.81 Encounter for therapeutic drug level monitoring; I48.91 Unspecified atrial fibrillation
CPT/HCPCS: 85610; 99211; G0463

== ENCOUNTER 2022-11-05 12:17 | Emergency (ER) | payer MEDICARE, SELFPAY ==
[2022-11-05 12:18] VITALS: BP 174/87; PULSE 66; RESP 18; TEMP 36.8; O2SAT 97; BMI 19.3
--- NOTE | 2022-11-05 12:32 | EXP.UTC ---
Discharge Plan Disposition Patient Disposition: Home, Self-Care Condition: Good Prescriptions Prescriptions: New methylprednisolone 4 mg Tablets,Dose Pack 4 mg PO DIRECTED Qty: 21 0RF cefdinir 300 mg capsule 300 mg PO BID Qty: 20 0RF No Action levofloxacin 500 mg tablet 500 mg PO DAILY Qty: 7 0RF lisinopril 20 MG tablet 20 mg PO DAILY Patient Comments: take 1 tablet by mouth once daily phenytoin sodium extended 100 MG capsule 100 mg PO DAILY warfarin 5 MG tablet 2.5 mg PO DAILY hydrochlorothiazide 25 MG tablet 25 mg PO DAILY Patient Comments: take 1 tablet by mouth once daily fluticasone propionate 16 GM spray,suspension 1 spray IH BID metoprolol succinate 50 MG tablet extended release 24 hr 50 mg PO DAILY phenytoin sodium extended 100 MG capsule 200 mg PO Referrals Follow up/Referrals: Gurwinder Ramirez MD [Primary Care Provider] - See instructions Activity Restrictions/Add. Instructions Additional Instructions/Restrictions: Drink plenty of fluids. Take tylenol for pain or fever. Take the medications as directed. Follow up with your regular doctor. GO TO THE ER FOR ANY WORSENING SYMPTOMS Clinical Impressions Clinical Impression: Acute serous otitis media, Sinusitis, Benign paroxysmal positional vertigo Instructions Patient Instructions: Middle Ear Infection Discharge ED Provider: Isaiah Mcgowan [facility] General Stated complaint: Dizzy Time Seen by Provider: 11/05/22 12:32 History of Present Illness Provider Complaint: She states that she has been having dizziness on and off for the past 1 week. She states that when she turns her head certain ways it makes it worse. She saw her pcp for this earlier in the week and was given a steroid shot for it. She states that this helped for about 24 hours before her dizziness returned. She c/o sinus congestion also. Related Data Home Medications Medication Instructions Recorded Confirmed fluticasone propionate 50 1 spray IH BID allergies 04/25/18 02/07/21 mcg/actuation nasal spray,suspension hydrochlorothiazide 25 mg tablet 25 mg PO DAILY daily 04/25/18 02/07/21 lisinopril 20 mg tablet 20 mg PO DAILY htn 04/25/18 02/07/21 phenytoin sodium extended 100 mg 100 mg PO DAILY seizures 04/25/18 02/07/21 capsule warfarin 5 mg tablet 2.5 mg PO DAILY afib 04/25/18 02/07/21 metoprolol succinate 50 mg 50 mg PO DAILY BLOOD PRESSURE 02/07/21 02/07/21 tablet,extended release 24 hr phenytoin sodium extended 100 mg 200 mg PO HS SEIZURES 02/07/21 02/07/21 capsule Previous Rx's Medication Instructions Recorded levofloxacin 500 mg tablet 500 mg PO DAILY #7 tabs 07/07/22 cefdinir 300 mg capsule 300 mg PO BID #20 caps 11/05/22 methylprednisolone 4 mg tablets in 4 mg PO DIRECTED #21 tabs 11/05/22 a dose pack Allergies Allergy/AdvReac Type Severity Reaction Status Date / Time Sulfa (Sulfonamide Allergy Mild Verified 01/05/21 18:36 Antibiotics) [SULFA (SULFONAMIDE ANTIBIOTICS)] [facility] Disclaimer: The information contained in this section may have been updated after the patient was seen, as this information can be updated by other users. Social History Smoking Status: Never smoker alcohol intake: never current occupational status: retired Travel in the last 8 weeks: None caffeine: No ROS Obtained: Yes All systems reviewed & no additional complaints except as documented Constitutional Constitutional: Denies chills and Denies fever(s) Eyes Eyes: Denies eye discharge ENT Ears, Nose, Mouth, and Throat: Reports as per HPI, Reports dizziness, Denies otalgia, Reports nasal congestion, Reports nasal discharge and Denies sore throat Cardiovascular Cardiovascular: Denies chest pain Respiratory Respiratory: Denies shortness of breath, Denies chest congestion, Denies cough, Denies stridor and Denies wheezing Gastrointestina
--- NOTE | 2022-11-05 12:45 | ECG_ITS ---
APPROVED REPORT Exam: Resting ECG HR:61 bpm ECG Measurements Heart Rate 61 AXES WI 183 P 57 QRSd 86 QRS 17 QT 385 T 31 QTc 388 Conclusion SINUS RHYTHM POSSIBLE RIGHT VENTRICULAR CONDUCTION DELAY [RSR (QR) IN V1/V2] BORDERLINE ECG UNCONFIRMED REPORT Electronically signed by : Gurwinder Ramirez MD 11/06/2022 07:15:59
[2022-11-05 13:21] VITALS: BP 174/87; PULSE 66; RESP 18; TEMP 36.8; O2SAT 97
== END 2022-11-05 13:22 | disposition home or self-care (01) ==
PROVIDERS: Emergency Provider Nurse Practitioner Family; PCP Internal Medicine Adolescent Medicine
DX: H65.03 Acute serous otitis media, bilateral (principal); J01.90 Acute sinusitis, unspecified; H81.10 Benign paroxysmal vertigo, unspecified ear
CPT/HCPCS: 93005; 99212; 99214; G0463

== ENCOUNTER 2022-11-13 09:51 | Outpatient (CLI) | payer MEDICARE, SELFPAY ==
[2022-11-13 11:32] LABS: PHA INR Fingerstick 1.8 (0.9-1.1)
== END 2022-11-13 11:33 ==
LOC: ACC 09:52
PROVIDERS: PCP Internal Medicine Adolescent Medicine; Visit Provider Internal Medicine Adolescent Medicine
DX: Z79.01 Long term (current) use of anticoagulants (principal); Z51.81 Encounter for therapeutic drug level monitoring; I48.91 Unspecified atrial fibrillation
CPT/HCPCS: 85610; 99211; G0463

== ENCOUNTER → 2022-11-21 13:10 | Outpatient (CLI) | payer MEDICARE, SELFPAY ==
--- NOTE | 2022-11-21 13:14 | CT_ITS ---
FINAL REPORT TECHNIQUE: Thin section axial CT images of the facial bones and sinuses were obtained without contrast. Coronal reformatted images were also obtained.This study was performed with techniques to keep radiation doses as low as reasonably achievable, (ALARA). Individualized dose reduction techniques using automated exposure control or adjustment of mA and/or kV according to the patient''''s size were employed. CLINICAL HISTORY: CHRONIC SINUSITIS FINDINGS: There is mild mucosal thickening in both maxillary sinuses. There is focal soft tissue in the anterior nasal cavities right larger than left most worrisome for polyposis. No fluid levels are identified. The ostiomeatal units have an unremarkable appearance. The nasal septum is in the midline. There is a small left-sided nasal septal spur. No fracture or acute bony abnormality is identified. IMPRESSION: Focal soft tissue in the nasal cavities bilaterally most worrisome for polyposis. Mild mucosal thickening in the maxillary sinuses without air-fluid levels. Reviewed, Interpreted and Dictated by Trev Serna III, MD Transcribed by Manuel Guzman Authenticated and [facility]
== END ==
LOC: RAD 13:10
PROVIDERS: PCP Internal Medicine Adolescent Medicine; Visit Provider Nurse Practitioner Family
DX: J32.8 Other chronic sinusitis (principal)
CPT/HCPCS: 70486

== ENCOUNTER 2022-12-14 11:01 | Outpatient (CLI) | payer MEDICARE, SELFPAY ==
[2022-12-26 12:19] LABS: PHA INR Fingerstick 2.2 (0.9-1.1)
== END 2022-12-14 14:06 ==
LOC: ACC 11:02
PROVIDERS: PCP Internal Medicine Adolescent Medicine; Visit Provider Internal Medicine Adolescent Medicine
DX: Z79.01 Long term (current) use of anticoagulants (principal); Z51.81 Encounter for therapeutic drug level monitoring; I48.91 Unspecified atrial fibrillation
CPT/HCPCS: 85610; 99211; G0463

== ENCOUNTER → 2023-01-01 14:53 | Outpatient (CLI) | payer MEDICARE, SELFPAY ==
--- NOTE | 2023-01-01 14:59 | CA_ITS ---
FINAL REPORT TECHNIQUE: Color Doppler, duplex Doppler and compression sonography of the right lower extremity venous system was performed. CLINICAL HISTORY: Redness, edema Pt on ASA 81mg and warfarin QD COMPARISON: None FINDINGS: There is no evidence of deep venous thrombosis from the level of the groin to the calf. The veins are patent and compressible. IMPRESSION: No evidence of deep venous thrombosis right lower extremity. Reviewed, Interpreted and Dictated by Trev Serna III, MD Transcribed by Gretchen Belcher Authenticated and [facility]
== END ==
LOC: RT 14:55
PROVIDERS: PCP Internal Medicine Adolescent Medicine; Visit Provider Nurse Practitioner Family
DX: M79.604 Pain in right leg (principal); R60.0 Localized edema
CPT/HCPCS: 93971

== ENCOUNTER 2023-01-26 10:49 | Outpatient (CLI) | payer MEDICARE, SELFPAY | END 2023-01-26 11:13 | LOC: ACC 10:50 | PROVIDERS: PCP Internal Medicine Adolescent Medicine; Visit Provider Internal Medicine Adolescent Medicine | DX: Z79.01 Long term (current) use of anticoagulants (principal); Z51.81 Encounter for therapeutic drug level monitoring; I48.91 Unspecified atrial fibrillation | CPT/HCPCS: 85610; 99211; G0463 ==

== ENCOUNTER 2023-03-27 11:25 | Outpatient (CLI) | payer MEDICARE, SELFPAY ==
[2023-03-27 12:27] LABS: INR 4.32 (0.9-1.1); Prothrombin Time 42.4 seconds (10.1-12.5)
[2023-03-27 15:33] LABS: PHA INR Fingerstick 4.4 (0.9-1.1)
== END 2023-03-27 16:00 ==
PROVIDERS: PCP Internal Medicine Adolescent Medicine; Visit Provider Internal Medicine Adolescent Medicine
DX: Z51.81 Encounter for therapeutic drug level monitoring; Z79.01 Long term (current) use of anticoagulants
CPT/HCPCS: 36415; 85610; 99211; G0463

== ENCOUNTER 2023-04-03 10:29 | Outpatient (CLI) | payer MEDICARE, SELFPAY ==
[2023-04-03 13:59] LABS: PHA INR Fingerstick 2.2 (0.9-1.1)
== END 2023-04-03 14:05 ==
LOC: ACC 10:30
PROVIDERS: PCP Internal Medicine Adolescent Medicine; Visit Provider Internal Medicine Adolescent Medicine
DX: Z79.01 Long term (current) use of anticoagulants (principal); Z51.81 Encounter for therapeutic drug level monitoring; I48.91 Unspecified atrial fibrillation
CPT/HCPCS: 85610; 99211; G0463

== ENCOUNTER 2023-04-11 09:58 | Outpatient (CLI) | payer MEDICARE, SELFPAY ==
[2023-04-11 11:23] LABS: INR 5.08 (0.9-1.1); Prothrombin Time 49.3 seconds (10.1-12.5)
[2023-04-11 12:03] LABS: PHA INR Fingerstick 4.7 (0.9-1.1)
== END 2023-04-11 14:34 ==
PROVIDERS: PCP Internal Medicine Adolescent Medicine; Visit Provider Internal Medicine Adolescent Medicine
DX: Z51.81 Encounter for therapeutic drug level monitoring; Z79.01 Long term (current) use of anticoagulants
CPT/HCPCS: 36415; 85610; 99211; G0463

== ENCOUNTER → 2023-04-19 10:11 | Outpatient (CLI) | payer MEDICARE, SELFPAY ==
[2023-04-19 11:24] LABS: PHA INR Fingerstick 1.1 (0.9-1.1)
== END ==
LOC: ACC 10:14
PROVIDERS: PCP Internal Medicine Adolescent Medicine; Visit Provider Internal Medicine Adolescent Medicine
DX: Z79.01 Long term (current) use of anticoagulants (principal); I48.91 Unspecified atrial fibrillation
CPT/HCPCS: 85610; 99211; G0463

== ENCOUNTER 2023-04-27 10:12 | Outpatient (CLI) | payer MEDICARE, SELFPAY | END 2023-04-27 10:43 | LOC: ACC 10:12 | PROVIDERS: PCP Internal Medicine Adolescent Medicine; Visit Provider Internal Medicine Adolescent Medicine | DX: Z79.01 Long term (current) use of anticoagulants (principal); Z51.81 Encounter for therapeutic drug level monitoring; I48.91 Unspecified atrial fibrillation | CPT/HCPCS: 85610; 99211; G0463 ==

== ENCOUNTER 2023-05-10 10:31 | Outpatient (CLI) | payer MEDICARE, SELFPAY ==
[2023-05-10 13:18] LABS: PHA INR Fingerstick 3.2 (0.9-1.1)
== END 2023-05-10 13:28 ==
LOC: ACC 10:33
PROVIDERS: PCP Internal Medicine Adolescent Medicine; Visit Provider Internal Medicine Adolescent Medicine
DX: Z79.01 Long term (current) use of anticoagulants (principal); Z51.81 Encounter for therapeutic drug level monitoring; I48.91 Unspecified atrial fibrillation
CPT/HCPCS: 85610; 99211; G0463

== ENCOUNTER 2023-06-01 10:29 | Outpatient (CLI) | payer MEDICARE, SELFPAY ==
[2023-06-01 15:08] LABS: PHA INR Fingerstick 1.6 (0.9-1.1)
== END 2023-06-01 15:30 ==
LOC: ACC 10:29
PROVIDERS: PCP Internal Medicine Adolescent Medicine; Visit Provider Internal Medicine Adolescent Medicine
DX: Z79.01 Long term (current) use of anticoagulants (principal); Z51.81 Encounter for therapeutic drug level monitoring; I48.91 Unspecified atrial fibrillation
CPT/HCPCS: 85610; 99211; G0463

== ENCOUNTER 2023-06-29 10:27 | Outpatient (CLI) | payer MEDICARE, SELFPAY | END 2023-06-29 11:05 | LOC: ACC 10:27 | PROVIDERS: PCP Internal Medicine Adolescent Medicine; Visit Provider Internal Medicine Adolescent Medicine | DX: Z79.01 Long term (current) use of anticoagulants (principal); Z51.81 Encounter for therapeutic drug level monitoring | CPT/HCPCS: 85610; 99211; G0463 ==

== ENCOUNTER 2023-08-10 10:46 | Outpatient (CLI) | payer MEDICARE, SELFPAY ==
[2023-08-10 11:02] LABS: PHA INR Fingerstick 2.5 (0.9-1.1)
== END 2023-08-10 11:13 ==
LOC: ACC 10:47
PROVIDERS: PCP Internal Medicine Adolescent Medicine; Visit Provider Internal Medicine Adolescent Medicine
DX: I48.91 Unspecified atrial fibrillation (principal); Z51.81 Encounter for therapeutic drug level monitoring; Z79.01 Long term (current) use of anticoagulants
CPT/HCPCS: 85610; 99211; G0463

== ENCOUNTER 2023-09-21 10:46 | Outpatient (CLI) | payer MEDICARE, SELFPAY ==
[2023-09-21 14:35] LABS: PHA INR Fingerstick 1.6 (0.9-1.1)
== END 2023-09-21 15:02 ==
LOC: ACC 10:47
PROVIDERS: PCP Internal Medicine Adolescent Medicine; Visit Provider Internal Medicine Adolescent Medicine
DX: Z79.01 Long term (current) use of anticoagulants (principal); Z51.81 Encounter for therapeutic drug level monitoring; I48.91 Unspecified atrial fibrillation
CPT/HCPCS: 85610; 99211; G0463

== ENCOUNTER 2023-10-12 10:33 | Outpatient (CLI) | payer MEDICARE, SELFPAY ==
[2023-10-12 11:44] LABS: PHA INR Fingerstick 2.4 (0.9-1.1)
== END 2023-10-12 11:45 ==
LOC: ACC 10:34
PROVIDERS: PCP Internal Medicine Adolescent Medicine; Visit Provider Internal Medicine Adolescent Medicine
DX: Z79.01 Long term (current) use of anticoagulants (principal); I48.91 Unspecified atrial fibrillation
CPT/HCPCS: 85610; 99211; G0463

== ENCOUNTER 2023-12-03 13:23 | Outpatient (CLI) | payer MEDICARE, SELFPAY ==
[2023-12-03 14:32] LABS: PHA INR Fingerstick 3.7 (0.9-1.1)
== END 2023-12-03 14:34 ==
LOC: ACC 13:24
PROVIDERS: PCP Internal Medicine Adolescent Medicine; Visit Provider Internal Medicine Adolescent Medicine
DX: Z79.01 Long term (current) use of anticoagulants (principal); I48.91 Unspecified atrial fibrillation
CPT/HCPCS: 85610; 99211; G0463

== ENCOUNTER 2023-12-21 07:31 | Outpatient (CLI) | payer MEDICARE, SELFPAY ==
--- NOTE | 2023-12-21 07:32 | CT_ITS ---
FINAL REPORT TECHNIQUE: Multiple axial CT sections were performed through the face without IV contrast. Coronal reconstruction images were performed. This study was performed with techniques to keep radiation doses as low as reasonably achievable (ALARA). Individualized dose reduction techniques using automated exposure control or adjustment of mA and/or kV according to the patient's size were employed. CLINICAL HISTORY: nasal polyp COMPARISON: 11/21/2022 FINDINGS: There is lobular mucoperiosteal thickening or polyp in the right maxillary sinus. The ostiomeatal units are patent. There is no fracture. There are no air-fluid levels. IMPRESSION: Mucoperiosteal thickening or polyp right maxillary sinus.. Reviewed, Interpreted and Dictated by Nate Min MD Transcribed by Christie Brothers Authenticated and [facility]
[2023-12-21 10:17] LABS: PHA INR Fingerstick 3.9 (0.9-1.1)
== END 2023-12-21 10:23 ==
LOC: RAD 07:32
PROVIDERS: PCP Internal Medicine Adolescent Medicine; Visit Provider Nurse Practitioner
DX: J33.9 Nasal polyp, unspecified (principal); Z79.01 Long term (current) use of anticoagulants
CPT/HCPCS: 70486; 85610; 99211; G0463

== ENCOUNTER 2024-01-11 11:08 | Outpatient (CLI) | payer MEDICARE, SELFPAY ==
[2024-01-11 12:15] LABS: PHA INR Fingerstick 4.9 (0.9-1.1)
[2024-01-11 12:33] LABS: INR 4.49 (0.9-1.1); Prothrombin Time 43.3 seconds (10.1-12.5)
== END 2024-01-11 12:16 ==
PROVIDERS: PCP Internal Medicine Adolescent Medicine; Visit Provider Internal Medicine Adolescent Medicine
DX: Z79.01 Long term (current) use of anticoagulants (principal); I48.91 Unspecified atrial fibrillation
CPT/HCPCS: 36415; 85610; 99211; G0463

== ENCOUNTER 2024-01-18 11:09 | Outpatient (CLI) | payer MEDICARE, SELFPAY ==
[2024-01-18 16:32] LABS: PHA INR Fingerstick 2.3 (0.9-1.1)
== END 2024-01-18 16:33 ==
LOC: ACC 11:11
PROVIDERS: PCP Internal Medicine Adolescent Medicine; Visit Provider Internal Medicine Adolescent Medicine
DX: Z79.01 Long term (current) use of anticoagulants (principal); I48.91 Unspecified atrial fibrillation
CPT/HCPCS: 85610; 99211; G0463

== ENCOUNTER 2024-02-01 12:15 | Emergency (ER) | payer MEDICARE, SELFPAY ==
[2024-02-01 12:17] VITALS: BP 150/70; PULSE 76; RESP 18; TEMP 36.6; O2SAT 100; BMI 18.4
--- NOTE | 2024-02-01 12:23 | PC.NURSE ---
DR MARIA AT BEDSIDE
--- NOTE | 2024-02-01 12:48 | ED_ITS ---
Discharge Plan Disposition Patient Disposition: Home, Self-Care Condition: Good Prescriptions Prescriptions: New gabapentin 100 mg capsule 100 mg PO BID Qty: 30 0RF No Action warfarin 2.5 mg tablet 2.5 mg PO SA hydrochlorothiazide 12.5 mg capsule PO DAILY Patient Comments: TAKE 1 CAPSULE BY MOUTH EVERY DAY aspirin 81 mg tablet,delayed release (DR/EC) 81 mg PO DAILY Flonase Sensimist 27.5 mcg/actuation spray,suspension 1 spray intranasal BID Qty: 6.6 2RF Rx Instructions: into each nostril ipratropium bromide 21 mcg (0.03 %) spray,non-aerosol 2 spray intranasal BID Qty: 30 3RF Rx Instructions: administer into each nostril fluticasone propionate [Flonase Allergy Relief] 50 mcg/actuation spray,suspension 1 spray intranasal BID Qty: 16 2RF Rx Instructions: administer into each nostril azelastine 137 mcg (0.1 %) spray,non-aerosol 1 spray intranasal BID Qty: 30 2RF Rx Instructions: administer into each nostril warfarin 2.5 mg tablet 1.25 mg PO SUMOTUWETHFR Patient Comments: TAKE 1 TABLET BY MOUTH DAILY lisinopril 20 MG tablet 20 mg PO DAILY Patient Comments: take 1 tablet by mouth once daily phenytoin sodium extended 100 MG capsule 100 mg PO DAILY fluticasone propionate 16 GM spray,suspension 1 spray inhalation BID metoprolol succinate 50 MG tablet extended release 24 hr 50 mg PO DAILY phenytoin sodium extended 100 MG capsule 200 mg PO HS Referrals Follow up/Referrals: Manuela Wang MD [Staff Physician] - See instructions (Radicular pain in lower extremities, prior CVA.) Gurwinder Ramirez MD [Primary Care Provider] - 3 days (Re-evaluation after starting gabapentin) Activity Restrictions/Add. Instructions Additional Instructions/Restrictions: Begin taking the gabapentin twice a day. This medication can increase confusion, fall risk, unsteadiness. Please monitor your response and stop taking it if you experience these side effects. Follow-up with your primary care provider in the next 2 to 3 days for reevaluation of initiating this medication. You may also benefit from physical therapy for generalized strength increased and stability improvements. A referral was placed to Dr. Wang with Neurology. Clinical Impressions Clinical Impression: Radicular leg pain Instructions Patient Instructions: DI for Muscle Weakness Print Language Print Language: Cambodian Discharge ED Provider: Laura Garcia General Adult HPI General Chief complaint: Weakness Stated complaint: Pain in both legs/ weakness/ fall 01/30 Time Seen by Provider: 02/01/24 12:20 Mode of Arrival: Ambulatory Limitations: No Limitations Description of Symptoms (Recalled from ER Triage Doc. by RN): PT C/O BILATERAL LEG PAIN, BURNING AND WEAKNESS. PAIN FROM KNEES TO FEET. PAIN IS INTERMITTENT. OCCASIONAL WEAKNESS AND DIZZINESS History of Present Illness HPI narrative: Maribel Head is a 88 y/o female presenting with leg pain. Patient has had intermittent lower leg pain bilaterally that she describes as a burning and shooting sensation. No particular movements make this pain better or worse. When the pain comes on, it causes leg shaking and can cause patient to fall. Patient has been getting worked up for dizziness and falls. 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 Patient denies leg swelling, wounds. Patient did have a fall yesterday that did not injure her legs. Patient denies headache, blurry vision, dizziness, lightheadedness, chest pain, shortness of breath, numbness, tingling. Related Data Home Medications ?Medication ?Instructions ?Recorded ?Confirmed fluticasone propionate 50 1 spray inhalation BID allergies 04/25/18 12/31/23 mcg/actuation nasal spray,suspension lisinopril 20 mg tablet 20 mg PO DAILY htn 04/25/18 12/31/23 phenytoin sodium extended 100 mg 100 mg PO DAILY seizures 04/25/18 12/31/23 capsule metoprolol succinate 50 mg 50 mg PO DAILY BLOOD PRESSURE 02/07/21 12/31/23 tablet,extended release 24 hr phenytoin sodium extended 100 mg 200 mg PO HS SEIZURES 02/07/21 12/31/23 capsule aspirin 81 mg tablet,delayed 81 mg PO DAILY 12/18/22 12/31/23 release hydrochlorothiazide 12.5 mg capsule mg PO DAILY 12/18/22 12/31/23 warfarin 2.5 mg tablet 2.5 mg PO SA 12/18/22 01/18/24 warfarin 2.5 mg tablet 1.25 mg PO SUMOTUWETHFR 01/18/24 01/18/24 Previous Rx's ?Medication ?Instructions ?Recorded fluticasone furoate 27.5 1 spray intranasal BID #6.6 mL 12/18/22 mcg/actuation nasal spray,suspension (Flonase Sensimist) fluticasone propionate 50 1 spray intranasal BID #16 grams 03/05/23 mcg/actuation nasal spray,suspension (Flonase Allergy Relief) azelastine 137 mcg (0.1 %) nasal 1 spray intranasal BID #30 mL 12/03/23 spray ipratropium bromide 21 mcg (0.03 2 spray intranasal BID #30 mL 12/31/23 %) nasal spray gabapentin 100 mg capsule 100 mg PO BID #30 caps 02/01/24 Allergies Allergy/AdvReac Type Severity Reaction Status Date / Time Sulfa (Sulfonamide Allergy Mild Verified 12/31/23 15:42 Antibiotics) [SULFA (SULFONAMIDE ANTIBIOTICS)] [facility] Disclaimer: The information contained in this section may have been updated after the patient was seen, as this information can be updated by other users. Medical History Nasal polyps History of nasal polyp Chronic recurrent sinusitis Surgical History History of tonsillectomy and adenoidectomy Social History Smoking Status: Never smoker alcohol intake: never current occupational status: retired Travel in the last 8 weeks: None caffeine: No Other Medical History Have you received the Pneumonia Vaccine: No ROS Obtained: Yes All systems reviewed & no additional complaints except as documented Physical Exam General General appearance: alert and in no apparent distress Respiratory Respiratory exam: Present normal lung sounds bilaterally Cardiovascular Cardiovascular exam: Present regular rate and normal rhythm Abdominal Exam Abdominal exam: Present soft; Absent distention or tenderness Extremities Exam Extremities exam: Present full ROM; Absent tenderness or edema Neurological Exam Neurological exam: Present alert, oriented X3 and normal gait; Absent motor sensory deficit Skin Skin exam: Present warm and dry Medical Decision Making Medical Records Screening: Per USPSTF and CDC recommendations, given the prevalence of disease in our region, it is our hospital?s policy to screen for HIV and viral Hepatitis for all patients aged 18 and over and those with ongoing risk factors. [place] Inquiry Pt receiving controlled substance: No Vital Signs: 02/01/24 12:17 10/11/24 12:52 Temperature 97.8 F 97.8 F Temperature Source Oral Oral Pulse Rate 76 Pulse Rate [Radial] 76 Respiratory Rate 18 18 Blood Pressure 142/71 H Blood Pressure [Right Arm] 150/70 H Blood Pressure Mean [Right Arm] 96 Blood Pressure Source Automatic Cuff Blood Pressure Source [Right Arm] Automatic Cuff Blood Pressure Position Sitting Blood Pressure Position [Right Arm] Sitting 02 Sat by Pulse Oximetry 100 Oxygen Delivery Method Room Air Orders (Tests/Meds): ORDERS Category Date Time Status HIV (1&2) Antibody Rapid Stat Lab 02/01/24 12:28 Ordered Hep C Ab with Reflex to RNA Stat Lab 02/01/24 12:28 Ordered Medical Decision Narrative: In summary, Maribel Head is an 88-year-old female presenting with bilateral lower leg pain. Differential diagnosis includes but is not limited to, DVT, cellulitis, radiculopathy, fracture, among others. Patient hemodynamically stable and in no acute distress. Patient ambulated without difficulty into the emergency department. On exam, patient had no acute limb swelling, tenderness to palpation, wounds or bruising. At this time, it was not felt that x-ray images would benefit the patient. Patient also would not benefit from a DVT ultrasound study as she has no acute limb swelling, is compliant with her warfarin, and has no evidence of cellulitis or infection. Based on the description of the patient's pain, it is felt that patient likely suffering from radicular or a nerve pain. Patient does not take gabapentin or neuropathic medications. Patient initiated on 100 mg twice daily due to her propensity to suffer from dizziness as well as her warfarin use. I discussed the risk versus benefit of starting this medication and following up with her primary early next week. Patient and her daughter were in agreement with this plan. Patient lives with daughter and is always supervised. Patient also has a cane to ambulate with and was advised to use this more frequently. Patient also advised to request physical therapy from her primary care provider for additional strength training and improvement in her general mobility. Patient discharged in stable condition. Laura Garcia MD PGY-3, Emergency Medicine Critical Care Critical Care Time Critical Care Time: No
[2024-02-01 12:52] VITALS: BP 142/71; PULSE 76; RESP 18; TEMP 36.6; O2SAT 100
== END 2024-02-01 12:52 | disposition home or self-care (01) ==
PROVIDERS: Emergency Provider Student in an Organized Health Care Education/Training Program; PCP Internal Medicine Adolescent Medicine
DX: M54.10 Radiculopathy, site unspecified (principal); R53.1 Weakness; R42 Dizziness and giddiness; M25.561 Pain in right knee; M25.562 Pain in left knee; M79.671 Pain in right foot; M79.672 Pain in left foot; M79.604 Pain in right leg; M79.605 Pain in left leg
CPT/HCPCS: 99281; 99283

== ENCOUNTER 2024-02-15 10:25 | Outpatient (CLI) | payer MEDICARE, SELFPAY ==
[2024-02-15 10:55] LABS: PHA INR Fingerstick 1.3 (0.9-1.1)
== END 2024-02-15 10:58 ==
LOC: ACC 10:25
PROVIDERS: PCP Internal Medicine Adolescent Medicine; Visit Provider Internal Medicine Adolescent Medicine
DX: Z79.01 Long term (current) use of anticoagulants (principal); I48.91 Unspecified atrial fibrillation
CPT/HCPCS: 85610; 99211; G0463

== ENCOUNTER 2024-03-19 09:25 | Outpatient (CLI) | payer MEDICARE, SELFPAY ==
[2024-03-19 10:17] LABS: PHA INR Fingerstick 2.1 (0.9-1.1)
== END 2024-03-19 10:34 ==
LOC: ACC 09:26
PROVIDERS: PCP Internal Medicine Adolescent Medicine; Visit Provider Internal Medicine Adolescent Medicine
DX: Z79.01 Long term (current) use of anticoagulants (principal); I48.91 Unspecified atrial fibrillation
CPT/HCPCS: 85610; 99211; G0463

== ENCOUNTER 2024-05-08 12:43 | Outpatient (CLI) | payer MEDICARE, SELFPAY ==
[2024-05-08 15:29] LABS: PHA INR Fingerstick 2.5 (0.9-1.1)
== END 2024-05-08 15:39 ==
LOC: ACC 12:44
PROVIDERS: PCP Nurse Practitioner Family; Visit Provider Internal Medicine Adolescent Medicine
DX: Z79.01 Long term (current) use of anticoagulants (principal); I48.91 Unspecified atrial fibrillation
CPT/HCPCS: 85610; 99211; G0463

== ENCOUNTER 2024-06-16 15:58 | Outpatient (CLI) | payer MEDICARE, SELFPAY ==
[2024-06-16 16:50] LABS: PHA INR Fingerstick 5.2 (0.9-1.1)
[2024-06-16 17:47] LABS: INR 5.45 (0.9-1.1); Prothrombin Time 50.7 seconds (9.2-12.1)
== END 2024-06-16 17:00 | disposition home or self-care (01) ==
PROVIDERS: PCP Internal Medicine Adolescent Medicine; Visit Provider Internal Medicine Adolescent Medicine
DX: I48.91 Unspecified atrial fibrillation (principal); Z79.01 Long term (current) use of anticoagulants
CPT/HCPCS: 36415; 85610; 99211; G0463